=== PATIENT | male | born 1985 | race Caucasian/White ===

== ENCOUNTER 2021-01-11 11:28 | Emergency (ER) | payer OTHER ==
[~2021-01-11] VITALS: Ht 188 cm; Wt 111.1 kg
[2021-01-11] MEDS ORDERED: KETO10TA2 PO (12:48)
[2021-01-11] MEDS ORDERED: DUI500 PO (12:48)
== END 2021-01-11 13:07 | disposition home or self-care (01) ==
LOC: ER 11:28
DX: R59.0 Localized enlarged lymph nodes (principal)